=== PATIENT | male | born 2000 | race Two or more races ===

== ENCOUNTER 2025-06-19 01:34 | Emergency (ER) | payer MEDICAID, SELFPAY ==
[2025-06-19 01:35] VITALS: BMI 29.7
[2025-06-19 02:08] VITALS: BP 137/84; PULSE 74; RESP 16; TEMP 36.7; O2SAT 99
[2025-06-19 02:39] LABS: Basophils # (Auto) 0.1 Thou/mm3 (0.0-0.2); Basophils % (Auto) 1 % (0-2.5); Eosinophils # (Auto) 0.2 Thou/mm3 (0.0-0.5); Eosinophils % (Auto) 2 % (0-10); Hematocrit 43.5 % (41.0-53.0); Hemoglobin 14.9 g/dL (13.5-16.0); Immature Granulocytes Auto 0.03 Thou/mm3 (0.00-0.00); Lymphocytes # (Auto) 2.8 Thou/mm3 (1.0-4.8); Lymphocytes % (Auto) 27 % (10-50); Mean Corpuscular HGB Conc 34.3 g/dl (31.0-37.0); Mean Corpuscular Hemoglobin 30.3 pg (25.0-35.0); Mean Corpuscular Volume 88 fL (80-100); Monocytes # (Auto) 1.1 Thou/mm3 (0.0-0.8); Monocytes % (Auto) 10 % (0-12); Neutrophils # (Auto) 6.5 Thou/mm3 (1.8-7.7); Neutrophils % (Auto) 61 % (37-80); Nucleated Red Blood Cell # 0.00 Thou/mm3 (0.00-0.00); Nucleated Red Blood Cell % 0 /100 WBC (0); Platelet Count 271 Thou/mm3 (140-440); RDW Standard Deviation 39.9 fL (35.1-43.9); Red Blood Count 4.92 Miln/mm3 (4.50-5.90); White Blood Count 10.7 Thou/mm3 (3.8-10.6)
[2025-06-19 03:10] LABS: Alanine Aminotransferase 21 U/L (10-49); Albumin, Serum 5.1 gm/dL (3.5-5.0); Albumin/Globulin Ratio 2.6 (1.2-2.2); Alkaline Phosphatase 69 U/L (46-116); Anion Gap 12 (7-16); Aspartate Amino Transferase 26 U/L (0-34); BUN/Creatinine Ratio 8 Ratio (12-20); Bilirubin,Total 0.8 mg/dL (0.3-1.2); Blood Urea Nitrogen 7 mg/dL (9-23); Calcium 9.4 mg/dL (8.3-10.6); Calcium (Corrected) 9.4 mg/dL (8.5-10.1); Carbon Dioxide 25.5 mMol/L (20.0-31.0); Chloride 105 mMol/L (98-107); Creatinine (Component) 0.9 mg/dL (0.6-1.3); Estimated Creatinine Clearance 133.9 mL/min (>60); Globulin 2.0 gm/dL (2.3-3.5); Glucose 102 mg/dL (74-106); Osmolality,Calculated 281 (275-295); Potassium 3.6 mMol/L (3.4-5.1); Sodium 142 mMol/L (136-145); Total Protein 7.1 gm/dL (5.7-8.2); eGFR > 60 See Note
[2025-06-19] MEDS: MG HYD/AL HYD/SIME (Maalox Reg) SUSP 30 ML UDC PO (03:16)
[2025-06-19 03:28] LABS: Collection Type, Urine Clean Catch; Squamous Epithelial Cell,Urine 0 /hpf (0-5)
[2025-06-19 03:35] LABS: Bilirubin,Urine Negative (Negative); Blood,Urine Negative (Negative); Clarity,Urine Clear (Clear/Hazy); Color,Urine Yellow (Lt Yel-Yel); Glucose, Urine Negative (Negative); Ketones,Urine Negative (Negative); Leukocyte Esterase,Urine Negative (Negative); Nitrite,Urine Negative (Negative); PH,Urine 7.0 (5.0-7.0); Protein,Urine Trace (Neg - Trace); RBC,Urine 2 /hpf (0-3); Specific Gravity,Urine 1.028 (1.001-1.035); Urobilinogen,Urine Negative mg/dL (0.0-1.0); WBC,Urine < 1 /hpf (0-5)
[2025-06-19 04:11] VITALS: BP 141/91; PULSE 63; RESP 17; TEMP 36.6; O2SAT 100
--- NOTE | 2025-06-19 05:11 | EDNOTE_ITS ---
ED Abdominal Pain RME/HPI General Chief Complaint: Abdominal Pain Stated complaint: UPPER ABDOMINAL PAIN Time seen by provider: 06/19/25 01:40 Arrival date/time: 06/19/25 01:34 RME / HPI RME / HPI narrative: DR. MUÑOZ MAIN ED EVALUATION: Patient presenting with recurring epigastric abdominal pain onset 7 PM constant in nature with occasional radiation to the back. No nausea, vomiting, fever or chills. No melena or hematochezia. Patient had similar episodes in the past, but not as intense or as long. GI Risk Factors: Negative Tobacco, Alcohols, NSAIDs and Steroids PMH: Unremarkable PSH: Appendectomy Allergies: None Social: Occasional Alcohol, No tobacco or illicit drug abuse Related Data Previous Rx's ?Medication ?Instructions ?Recorded aluminum-mag hydroxide-simethicone 10 ml PO TID PRN in digestion #300 06/13/21 200 mg-200 mg-20 mg/5 mL oral susp mL (Maalox Advanced) pantoprazole 20 mg tablet,delayed 20 mg PO QDAY #30 ta bs 06/19/25 release (Protonix) Allergies Allergy/AdvReac Type Severity Reaction Status Date / Time No Known Allergies Allergy Verified 08/02/21 17:20 Review of Systems Review of Systems Systems Reviewed: All systems reviewed, normal except as documented Past Medical History Past Medical History ENT: Positive Ear Infection OTHER HISTORY: Positive Hospitalization Surgical History SURGICAL: Positive Abdominal Surgery Social History ALCOHOL: Current ALCOHOL FREQUENCY: holidays/special occasions only ED Exam Narrative Physical exam: GEN. APPEARANCE: The patient is alert awake oriented X-3 under no distress, lying down comfortably, does not look ill/toxic. Patient has good eye contact. Patient is cooperative. VITALS: All vitals were reviewed and the pulse ox is 100%, which is normal according to my interpretation HEENT: Normocephalic, atraumatic and nontender. Pupils are equal and reactive. Oral mucosa is moist. NECK: Supple, nontender, no meningismus, no JVD. There is no thyromegaly and no lymphadenopathy. CHEST: Nontender on palpation no deformity and no crepitus. CARDIOVASCULAR: Heart regular rhythm, no murmur or gallop rub or extra beats. LUNGS: Clear to auscultation bilaterally with symmetrical chest rise. No laboring tachypnea or wheezing. No intercostal subcostal retraction. No rales and no rhonchi. ABDOMEN: Soft, flat, nontender to palpation, no guarding or rebound tenderness. There are no abnormal masses palpated. No pulsatile masses or bruits. Active and normal bowel sounds. EXTREMITIES: Normal inspection and palpation. No edema. No cyanosis. Patient is able to move all 4 extremities well SKIN: Warm and dry, no rashes noted. MUSCULOSKELETAL: No lumbar or midline bony tenderness. There is no CVA tenderness. No paraspinal muscle spasm or tenderness. NEURO: Cranial nerves II through XII grossly intact. There are no focal neurologic deficits noted. GCS is 15 PSYCHIATRIC: Patient is in normal mood and affect, cooperative. LYMPHATICS: No major lymphadenopathy noted. Course Quality Measures none Orders Category Date Time Status CBC Stat Lab 06/19/25 02:21 Completed CMP [Comprehensive Metabolic Panel] Stat Lab 06/19/25 02:21 Completed Lipase Stat Lab 06/19/25 02:21 Completed UA [Urinalysis] Stat Lab 06/19/25 03:12 Completed mg Hyd/Al Hyd/Zachary Susp [Maalox Susp] Med 06/19/25 02:05 Discontinued 30 ml PO X1 ONE Vital Signs Vital signs: Vital Signs Temperature 98.0 F 06/19/25 02:08 Pulse Rate 74 06/19/25 02:08 Respiratory Rate 16 06/19/25 02:08 Blood Pressure 137/84 H 06/19/25 02:08 Pulse Oximetry (%) 99 06/19/25 02:08 Oxygen Delivery Method Room Air 06/19/25 02:08 Abdominal Pain MDM MDM Narrative MDM Narrative:: Scribe Attestation: Libertad Porras am scribing for and in the presence of Dr. Muñoz. Provider Notation: Although this document has been carefully reviewed, there may still be some phonetic and other typographical errors. These errors are purely grammatical due to imperfections in the software program and should not be construed in any way to compromise the substance of the patient's medical care during this visit. Patient presenting with recurring epigastric abdominal pain onset 7 PM constant in nature with occasional radiation to the back. No nausea, vomiting, fever or chills. No melena or hematochezia. Please see PE findings. Lab CBC demonstrates WBC of 10.1, H&H of 14.9/43.5, platelet count of 271, no left shift or associated bandemia. Serum chemistries were unremarkable. Lipase currently pending. Further inquiry indicates patient tends to consume large amounts of spice, suspect gastritis. Patient treated with GI cocktail with complete resolution of pain. Considered stable for discharge. Will place on PPI, F/U with PMD with for consideration of GI referral should symptoms continue. Disposition, discharge to home. Final diagnosis includes gastritis. Patient data External records reviewed:: [facility] previous records (Reviewed prior ED records from 08/02/21. Patient was seen for Abdominal pain.) Clinical information provided by:: patient Social determinants that could affect healthcare access:: alcohol use Patient has the following chronic illnesses:: None reported How is presenting disease/condition affected by chronic disease/condition?: no chronic disease Evaluation data The following diagnostics were reviewed and interpreted by me:: lab results Lab and/or radiology exams considered but not ordered:: None Interpretation Summary: See MDM above Medications / Prescriptions Medications or Prescriptions considered but not ordered:: None Medication administrations:: Medication Administration History Discontinued Medications Al Hydrox/Mg Hydrox/Simethicone (Mg Hyd/Al Hyd/Zachary (Maalox Reg) Susp 30 Ml Udc) 30 ml PO X1 ONE Stop: 06/19/25 02:06 Last Admin: 06/19/25 03:16 Dose: 30 ml Documented By: RC See above if any Consultations Consultation(s) initiated? (list below): No Diagnosis Differential diagnosis abdominal pain: abdominal pain and other (GERD, Gastritis) Most likely diagnosis given after review of the tests above:: Gastritis Admission Indicated Admission indicated?: not indicated Explain why admission is indicated or not indicated:: Patient does not meet admission criteria Admission Request Was there a request for admission?: No Disposition Plan Disposition Plan: Discharge Discharge Attestation Discharge Attestation: The patient and all family members were given an opportunity to ask questions and understood the discharge instructions. Discharge instructions specifically effects, indications for sooner follow up or return to the emergency department, and the expected course of current diagnosis. Patient condition: Stable Discharge Plan Plan Patient Disposition: HOME (Self Care) Prescriptions/Referrals Prescriptions/Med Rec: New pantoprazole [Protonix] 20 mg tablet,delayed release (DR/EC) 20 mg PO QDAY Qty: 30 0RF No Action alum-mag hydroxide-simeth [Maalox Advanced] 200-200-20 mg/5 mL suspension 10 ml PO TID PRN (Reason: indigestion) Qty: 300 0RF Referrals: Ashwin Lemos MD [Primary Care Provider, [facility]] - In 1 week Problem List Clinical Impression: Gastritis Impression comment: Gastritis Patient/Caregiver Discharge Instructions Discharge Activity: activity as tolerated Diet Instructions: Avoid hot spicy foods. Reduce caffeine. Education Materials: ED PEPTIC ULCER vs GASTRITIS Additional Instructions: Avoid hot spicy foods. Minimize caffeine intake. Clear liquid diet for 24 hours and advance as tolerated. Medication as directed. Follow-up with primary care doctor for consideration of referral to GI specialist if symptoms persist. Return if worsening Print Language: Persian Stand Alone Forms: Marybeth Award Info., Patient Portal Info Letter
[2025-06-19 05:26] VITALS: BP 114/74; PULSE 68; RESP 13; O2SAT 100
[2025-06-19 05:30] LABS: Lipase 30 U/L (12-53)
== END 2025-06-19 05:26 | disposition home or self-care (01) ==
PROVIDERS: Physician Assistant; Emergency Provider Emergency Medicine; PCP Family Medicine
DX: K29.70 Gastritis, unspecified, without bleeding (principal)
CPT/HCPCS: 36415; 80053; 81001; 83690; 85025; 99282; A9270